=== PATIENT | female | born 1965 ===

== ENCOUNTER 2017-01-02 13:30 | Emergency (ER) | payer MEDICAID, OTHER ==
--- NOTE | 2017-01-02 14:11 | C.PDOC ---
History Of Present Illness 51 yo female w/PMHx of NIDDM come in for evaluation of Right side facial swelling, itchiness and pain gradually developed since yesterday. Pt reports, sustained mechanical fall 4 days ago, while on vacation in [place]. Pt sts, was seen there by doctor who evaluated her and pt was given Rx: Amoxicillin due to gingival pain/injury to frontal tooth. Pt sts, no imaging performed during the evaluation. Pt admits, 1st dose of medication took 3 days ago and since yesterday developed Right sided facial swelling and itchiness. Pt admits, sustained mechanical fall 4 days ago, "when fell straight onto my face". Otherwise, pt denies syncope, LOC, denies worse headache of life, visual changes , focal deficits, N/V, neck pain, CP, SOB, dyspnea, wheezing, abd. pain, back pain, denies deformity or weakness to B/L US and LEs. AMbulate to ED for evaluation, not in any apparent distress. Time Seen by Provider: 01/02/17 13:44 Chief Complaint (Nursing): Allergic Reaction History Per: Patient, Family Onset/Duration Of Symptoms: Gradual Past Medical History Reviewed: Historical Data, Nursing Documentation, Vital Signs Vital Signs: Last Vital Signs Temp 97.7 F 01/02/17 13:50 Pulse 82 01/02/17 13:50 Resp 18 01/02/17 13:50 BP 124/85 01/02/17 13:50 Pulse Ox 98 01/02/17 13:50 - Medical History PMH: Diabetes Family History: States: No Known Family Hx - Social History Hx Tobacco Use: No Hx Alcohol Use: No Hx Substance Use: No - Immunization History Hx Tetanus Toxoid Vaccination: No Hx Influenza Vaccination: No Hx Pneumococcal Vaccination: No Review Of Systems Except As Marked, All Systems Reviewed And Found Negative. Constitutional: Negative for: Fever, Chills Eyes: Positive for: Redness. Negative for: Vision Change ENT: Positive for: Mouth Pain. Negative for: Ear Discharge, Nose Discharge, Mouth Swelling, Throat Swelling Cardiovascular: Negative for: Chest Pain, Palpitations, Light Headedness Respiratory: Negative for: Cough, Shortness of Breath, Wheezing Gastrointestinal: Negative for: Nausea, Vomiting, Abdominal Pain Genitourinary: Negative for: Dysuria, Incontinence Musculoskeletal: Negative for: Neck Pain, Back Pain Skin: Positive for: Rash Neurological: Negative for: Weakness, Numbness, Headache Physical Exam - Physical Exam Appears: Well, Non-toxic, No Acute Distress Skin: Warm, Dry Head: Atraumatic, Normacephalic Eye(s): bilateral: PERRL, EOMI (no pain or limitation on extraocular movement.) , right: Other (mild infraorbital edema with trace ecchymoses) Ear(s): Bilateral: Normal Nose: No Flaring, No Discharge, No Deformity, No Tenderness Oral Mucosa: Moist Tongue: Normal Appearing Gingiva: Tender (Right upper central), Other (poor dental hygiene) Throat: No Erythema, No Exudate, No Drooling Neck: No Midline Cervical Tenderness, No Paracervical Tenderness, No Step Off Deformity, Supple Cardiovascular: Rhythm Regular Respiratory: No Stridor, No Wheezing Gastrointestinal/Abdominal: Soft, No Tenderness, No Distention, No Guarding Back: No Vertebral Tenderness Extremity: No Pedal Edema, No Deformity Neurological/Psych: Oriented x3, Normal Speech, Normal Motor, Normal Sensation, Normal Reflexes ED Course And Treatment O2 Sat by Pulse Oximetry: 98 - Other Rad CT HEAD X-Ray: Interpreted by Me, Read By Radiologist Interpretation: pprover : Don Cazares MD. Approver2 : Report Date : 15:01:47. My Comment : . PROCEDURE: CT scan of the brain dated . HISTORY: Injury. Right eye irritation. COMPARISON: Comparison made with concurrent CT scan maxillofacial skeleton. TECHNIQUE: Axial computed tomography images were obtained through the head/brain without intravenous contrast. Radiation dose: Total exam DLP = 943.13 mGy-cm. This CT exam was performed using one or more of the following dose reduction techniques: Automated exposure control, adjustment of the mA and/or kV according to patient size, and/or use of iterative reconstruction technique. FINDINGS: HEMORRHAGE: No acute parenchymal, subarachnoid nor extra-axial hemorrhage. BRAIN: Questionable minimal chronic periventricular white matter ischemic changes. No evidence of large acute infarct. No obvious parenchymal nor extra-axial mass or collection. Questionable artifact versus tiny chronic lacune left basal ganglia see axial image number 27. Mild generalized volume loss. Suspect incidental small pineal gland cyst. VENTRICLES: Unremarkable. No hydrocephalus. CALVARIUM: Calvarium appears intact. PARANASAL SINUSES: Frontal sinuses are underpneumatized/ hypoplastic. Remaining visualized paranasal sinuses are well-developed. No evidence acute hemorrhage or sinusitis. Visualized. No significant inflammatory changes. MASTOID AIR CELLS: Unremarkable as visualized. No inflammatory changes. OTHER FINDINGS: There may be some mild right periorbital soft tissue swelling. IMPRESSION: No evidence of acute intracranial hemorrhage. Questionable minimal chronic periventricular white matter ischemic changes. Tiny low-attenuation focus left basal ganglia could represent artifact versus tiny chronic lacune. Mild generalized volume loss. There is moderate right-sided premaxillary soft tissue swelling extending superiorly with mild infraorbital and minor periorbital soft tissue swelling. There is some posterior extension of swelling over the right zygoma - CT Scan/US CT MAXFACE Other Rad Studies (CT/US): Radiology Report Reviewed CT/US Interpretation: Accession No. : [id number]. Patient Name / ID : TALITA LUA E / [id number]. Exam Date : 01/02/2017 14:54:40 ( Approved ) . Study Comment : Sex / Age : F / 51Y. Creator : desmond cole. Dictator : Don Cazares MD. Finger Buff Sewer : Recreational Assistant : Don Cazares MD. Approver2 : Report Date : 01/02/2017 15:01:47. My Comment : . PROCEDURE: CT scan maxillofacial skeleton dated 01/02/2017. HISTORY: Injury. COMPARISON: Comparison made with concurrent CT scan brain. TECHNIQUE: Contiguous helical/ transaxial CT images of the maxillofacial bones were obtained. Coronal and sagittal reformats were generated. Radiation dose: Total exam DLP = 739.81 mGy-cm. This CT exam was performed using one or more of the following dose reduction techniques: Automated exposure control, adjustment of the mA and/or kV according to patient size, and/or use of iterative reconstruction technique. The at current study reveals no evidence of acute maxillofacial skeletal fracture. The osseous structures appear intact so far as can be seen. There is mild to moderate right-sided premaxillary soft tissue swelling extending superiorly with mild right infraorbital soft tissue swelling. There is some minor right periorbital soft tissue swelling. Swelling extends posteriorly over the right zygoma. . The bony orbits are intact. Globes intact and lenses appropriately located. There are no retrobulbar hemorrhages or collections seen. Optic nerves and extraocular musculature unremarkable. The sinuses frontal sinuses are hypoplastic/ underpneumatized. Remaining visualized paranasal sinuses are relatively well developed. No fluid levels seen to suggest acute hemorrhage or sinusitis. Incidental note is made of what is felt to represent a small radicular cyst surrounding the root of the right lateral incisor. Impression: Right-sided facial soft tissue swelling. No acute displaced fractures. . Incidental note made of what is felt to represent small radicular cyst surrounding the root of the right lateral incisor tooth Progress Note: On re-evaluation, pt is afebrile, hemodynamicalys table. NOn- toxic. PUlsEOx 98% RA. Head: AT/NC. Right eye: no pain or limittaiono n extraicula movement. Mild Right infraorbital edema. VA performed: R 20/40, L 20 /40 w/o correction. ENT: exam c/w Right side upper facial edema, mild erythema. Uvula midline, no edema. Lungs: CTA B/L, BS equal B/L. Abd: benign. IMagig review and no acute abnoramlities noted. Pt has clinical findings c/w Facial contusion, Right sided facial edema r/o allergic reaction to PCN. Pt avdised and ref. to F/u with PMD , ENT in 2-3 addison for re-eavl. return if any new changes. Disposition Counseled Patient/Family Regarding: Studies Performed, Diagnosis, Need For Followup, Rx Given - Disposition Referrals: [facility] [Outside] Disposition: HOME/ ROUTINE Disposition Time: 15:36 Condition: STABLE Additional Instructions: STOP AMOXICILLIN NOW DUE TO LIKELY ALLERGY TO PENICILLIN TAKE MEDICATION PRESCRIBED FOLLOW UP WITH PMD AND ENT IN 2-3 DAYS FOR RE-EVALUATION. RETURN TO ED IF ANY WORSENING OR NEW CHANGES. Prescriptions: DiphenhydrAMINE [Benadryl] 25 mg PO BID #10 cap Famotidine [Pepcid] 20 mg PO BID #10 tab Prednisone [Deltasone] 40 mg PO DAILY #6 tablet Instructions: Facial Contusion (ED), Allergies (ED) Print Language: SWEDISH - Clinical Impression Clinical Impression: Allergic urticaria, Facial contusion
[2017-01-02 14:17] VITALS: BMI 32.5
[2017-01-02 14:22] VITALS: BP 124/85; PULSE 82; RESP 18; TEMP 97.7; O2SAT 98
--- NOTE | 2017-01-02 15:21 | CT ---
PROCEDURE: CT scan of the brain dated 01/02/2017 HISTORY: Injury. Right eye irritation COMPARISON: Comparison made with concurrent CT scan maxillofacial skeleton TECHNIQUE: Axial computed tomography images were obtained through the head/brain without intravenous contrast. Radiation dose: Total exam DLP = 943.13 mGy-cm. This CT exam was performed using one or more of the following dose reduction techniques: Automated exposure control, adjustment of the mA and/or kV according to patient size, and/or use of iterative reconstruction technique. FINDINGS: HEMORRHAGE: No acute parenchymal, subarachnoid nor extra-axial hemorrhage. BRAIN: Questionable minimal chronic periventricular white matter ischemic changes. No evidence of large acute infarct. No obvious parenchymal nor extra-axial mass or collection. Questionable artifact versus tiny chronic lacune left basal ganglia see axial image number 27. Mild generalized volume loss. Suspect incidental small pineal gland cyst. VENTRICLES: Unremarkable. No hydrocephalus. CALVARIUM: Calvarium appears intact. PARANASAL SINUSES: Frontal sinuses are underpneumatized/ hypoplastic. Remaining visualized paranasal sinuses are well-developed. No evidence acute hemorrhage or sinusitis. Visualized. No significant inflammatory changes. MASTOID AIR CELLS: Unremarkable as visualized. No inflammatory changes. OTHER FINDINGS: There may be some mild right periorbital soft tissue swelling. IMPRESSION: No evidence of acute intracranial hemorrhage. Questionable minimal chronic periventricular white matter ischemic changes. Tiny low-attenuation focus left basal ganglia could represent artifact versus tiny chronic lacune. Mild generalized volume loss There is moderate right-sided premaxillary soft tissue swelling extending superiorly with mild infraorbital and minor periorbital soft tissue swelling. There is some posterior extension of swelling over the right zygoma
[2017-01-02] MEDS ORDERED: Oxycodone/Acetaminophen 5/325 mg Tab PO STA (15:22)
--- NOTE | 2017-01-02 15:28 | CT ---
PROCEDURE: CT scan maxillofacial skeleton dated 01/02/2017 HISTORY: Injury. COMPARISON: Comparison made with concurrent CT scan brain TECHNIQUE: Contiguous helical/ transaxial CT images of the maxillofacial bones were obtained. Coronal and sagittal reformats were generated. Radiation dose: Total exam DLP = 739.81 mGy-cm. This CT exam was performed using one or more of the following dose reduction techniques: Automated exposure control, adjustment of the mA and/or kV according to patient size, and/or use of iterative reconstruction technique. The at current study reveals no evidence of acute maxillofacial skeletal fracture. The osseous structures appear intact so far as can be seen. There is mild to moderate right-sided premaxillary soft tissue swelling extending superiorly with mild right infraorbital soft tissue swelling. There is some minor right periorbital soft tissue swelling. Swelling extends posteriorly over the right zygoma. . The bony orbits are intact. Globes intact and lenses appropriately located. There are no retrobulbar hemorrhages or collections seen. Optic nerves and extraocular musculature unremarkable. The sinuses frontal sinuses are hypoplastic/underpneumatized. Remaining visualized paranasal sinuses are relatively well developed. No fluid levels seen to suggest acute hemorrhage or sinusitis. Incidental note is made of what is felt to represent a small radicular cyst surrounding the root of the right lateral incisor. Impression: Right-sided facial soft tissue swelling. No acute displaced fractures. . Incidental note made of what is felt to represent small radicular cyst surrounding the root of the right lateral incisor tooth
[2017-01-02] MEDS ORDERED: Oxycodone/Acetaminophen 5/325 mg Tab ONE (15:34)
== END 2017-01-02 15:57 | disposition home or self-care (01) ==
LOC: C.ER 13:30
DX: L50.0 Allergic urticaria (principal); S00.83XD Contusion of other part of head, subsequent encounter; W19.XXXD Unspecified fall, subsequent encounter